=== PATIENT | female | born 1965 | race Caucasian/White ===

== ENCOUNTER 2024-12-29 16:08 | Inpatient (IN) | payer MEDICARE, OTHER ==
[~2024-12-29] VITALS: Ht 170.2 cm; Wt 59.0 kg
[2024-12-29 18:24] LABS: BASOPHILS % (AUTO) 0.4 % (0.0-2.0); EOSINOPHILS # (AUTO) 0.2 K/uL (0.0-0.7); EOSINOPHILS % (AUTO) 2.2 % (0.0-7.0); HEMATOCRIT 36.9 % (31.2-41.9); HEMOGLOBIN 12.3 g/dL (10.9-14.3); LYMPHOCYTES # (AUTO) 2.8 K/uL (0.8-4.8); LYMPHOCYTES % (AUTO) 32.7 % (20.5-51.5); MEAN CORPUSCULAR HEMOGLOBIN 28.7 uug (24.7-32.8); MEAN CORPUSCULAR HGB CONC 33 g/dL (32.3-35.6); MEAN CORPUSCULAR VOLUME 86.5 fL (75.5-95.3); MONOCYTES # (AUTO) 0.7 K/uL (0.1-1.30); MONOCYTES % (AUTO) 8.3 % (0.0-11.0); NEUTROPHILS # (AUTO) 4.9 K/uL (1.8-8.9); NEUTROPHILS % (AUTO) 56.4 % (38.5-71.5); PLATELET COUNT (AUTO) 202 K/uL (179-408); RED BLOOD CELL COUNT(AUTO) 4.27 MIL/uL (3.63-4.92); RED CELL DISTRIBUTION WIDTH 15.1 % (12.3-17.7); WHITE BLOOD COUNT (AUTO) 8.6 K/uL (3.8-11.8)
[2024-12-29 18:35] VITALS: BP 120/78; TEMP 98.2; O2SAT 98
[2024-12-29 18:54] LABS: ETHANOL < 3 MG/DL (0-10)
[2024-12-29 18:55] LABS: DIFFERENTIAL COMMENT 1
[2024-12-29 18:57] LABS: CALCIUM 8.9 mg/dL (8.5-10.1); CARBON DIOXIDE 29 mmol/L (21-32); CHLORIDE 102 mmol/L (98-107); CREATININE 0.4 mg/dL (0.6-1.3); GLUCOSE 90 mg/dL (74-106); POTASSIUM 3.9 mmol/L (3.5-5.1); SODIUM SERUM 139 mmol/L (136-145); UREA NITROGEN, BLOOD 11 mg/dL (7-18)
[2024-12-29 19:11] LABS: ALANINE AMINOTRANSFERASE 15 U/L (14-59); ALBUMIN 3.1 g/dL (3.4-5.0); ALKALINE PHOSPHATASE 68 U/L (50-136); ASPARTATE AMINOTRANSFERASE 10 U/L (15-37); BILIRUBIN,DIRECT 0.1 mg/dL (0.0-0.2); BILIRUBIN,TOTAL 0.3 mg/dL (0.2-1.0); NT-PRO BNP 52 pg/mL (0-125); TOTAL PROTEIN, SERUM 6.5 g/dL (6.4-8.2)
[2024-12-29] MEDS ORDERED: ONDANSETRON 4 MG/2 ML VIAL IV PRN (20:15)
[2024-12-29] MEDS ORDERED: REMEDY ESSENTIAL ZINC PASTE 113 GM TP PRN (20:15)
[2024-12-29] MEDS ORDERED: MAGNESIUM HYDROXIDE 30 ML LIQUID UDC PO PRN (20:15)
[2024-12-29 20:32] LABS: ACETAMINOPHEN < 2.0 ug/mL (10-30)
[2024-12-29] MEDS: IV 1/2NS 1000 ML 1,000 ML IV PRN (21:39)
[2024-12-29] MEDS ORDERED: PIPERACILLIN SODIUM/TAZO 3.375 GM VIAL ONE (21:51)
[2024-12-29] MEDS: PIPERACILLIN SODIUM/TAZOBACTAM 3.375 G in IV DEXTROSE 5% 50 ML IV SCH (22:22)
[2024-12-29] MEDS: ENOXAPARIN SODIUM 40 MG/0.4 ML DISP.SYRIN SQ SCH (22:23)
[2024-12-29] MEDS ORDERED: VANCOMYCIN IV 200 ML ONE (22:55)
[2024-12-29] MEDS: VANCOMYCIN IV 1,000 MG in IV NORMAL SALINE 250 ML IV ONE (23:05)
[2024-12-30] MEDS ORDERED: PIPERACILLIN SODIUM/TAZOBACTAM 3.375 G in IV DEXTROSE 5% 50 ML IV SCH (06:00)
[2024-12-30 06:55] LABS: BASOPHILS % (AUTO) 0.4 % (0.0-2.0); EOSINOPHILS # (AUTO) 0.1 K/uL (0.0-0.7); EOSINOPHILS % (AUTO) 1.5 % (0.0-7.0); HEMATOCRIT 37.6 % (31.2-41.9); HEMOGLOBIN 12.4 g/dL (10.9-14.3); LYMPHOCYTES # (AUTO) 1.2 K/uL (0.8-4.8); LYMPHOCYTES % (AUTO) 15.4 % (20.5-51.5); MEAN CORPUSCULAR HEMOGLOBIN 28.4 uug (24.7-32.8); MEAN CORPUSCULAR HGB CONC 33 g/dL (32.3-35.6); MEAN CORPUSCULAR VOLUME 85.8 fL (75.5-95.3); MONOCYTES # (AUTO) 0.6 K/uL (0.1-1.30); MONOCYTES % (AUTO) 8.3 % (0.0-11.0); NEUTROPHILS # (AUTO) 5.6 K/uL (1.8-8.9); NEUTROPHILS % (AUTO) 74.4 % (38.5-71.5); PLATELET COUNT (AUTO) 177 K/uL (179-408); RED BLOOD CELL COUNT(AUTO) 4.39 MIL/uL (3.63-4.92); WHITE BLOOD COUNT (AUTO) 7.5 K/uL (3.8-11.8)
[2024-12-30 07:27] LABS: CARBON DIOXIDE 29 mmol/L (21-32); CHLORIDE 104 mmol/L (98-107); CHOLESTEROL 146 mg/dL (<200); CREATININE 0.4 mg/dL (0.6-1.3); DIFFERENTIAL COMMENT 1; GLUCOSE 83 mg/dL (74-106); HDL CHOLESTEROL 59 mg/dL (40-60); MAGNESIUM 1.8 mg/dL (1.8-2.4); PHOSPHOROUS 4.1 mg/dL (2.5-4.9); POTASSIUM 4.1 mmol/L (3.5-5.1); SODIUM SERUM 141 mmol/L (136-145); TRIGLYCERIDES 43 MG/DL (30-150); UREA NITROGEN, BLOOD 8 mg/dL (7-18)
[2024-12-30 07:43] LABS: CALCIUM 8.7 mg/dL (8.5-10.1)
[2024-12-30] MEDS: PANTOPRAZOLE SODIUM 40 MG VIAL IV SCH (08:32)
[2024-12-30 09:06] VITALS: BP 101/63; TEMP 98.3; O2SAT 95
[2024-12-30] MEDS ORDERED: BUSP5TAB3 PO (09:35)
[2024-12-30] MEDS ORDERED: RISP3TAB61 PO (09:35)
[2024-12-30] MEDS ORDERED: MULT-1045 PO (09:35)
[2024-12-30] MEDS ORDERED: LEVO330T6 PO (09:35)
[2024-12-30] MEDS ORDERED: ATOR10TA PO (09:35)
[2024-12-30] MEDS ORDERED: ASCO500C18 PO (09:35)
[2024-12-30] MEDS ORDERED: LACT10SO68 PO (09:35)
[2024-12-30] MEDS ORDERED: PROT30LI PO (09:35)
[2024-12-30] MEDS ORDERED: OXCA300T15 PO (09:35)
[2024-12-30] MEDS ORDERED: LORA-259 PO (09:35)
[2024-12-30] MEDS: DIVALPROEX SPRINKLE 125 MG CAP.SPRINK PO SCH (09:57)
[2024-12-30] MEDS: LORAZEPAM 1 MG TABLET PO PRN ×2 (09:57→21:03)
[2024-12-30] MEDS: OLANZAPINE ZYDIS 5 MG TAB.RAPDIS PO SCH (09:58)
[2024-12-30 10:49] LABS: THYROID STIMULATING HORMONE 0.891 mIU/mL (0.358-3.740)
[2024-12-30] MEDS: MEROPENEM 0.5 G in IV NORMAL SALINE 50 ML IV SCH (11:34)
[2024-12-30] MEDS: MEDIHONEY= THERAHONEY 1.5 OZ TUBE TOP SCH (12:08)
[2024-12-30] MEDS ORDERED: LACTULOSE 20 G/30 ML LIQUID UDC PO PRN (15:15)
[2024-12-30] MEDS: VANCOMYCIN IV 1,000 MG in IV DEXTROSE 5% 250 ML IV SCH (15:48)
[2024-12-30 16:15] VITALS: BP 100/61; TEMP 98.9; O2SAT 97
[2024-12-30] MEDS: OXCARBAZEPINE 300 MG TABLET PO SCH (16:21)
[2024-12-30] MEDS: risperiDONE 2 MG TABLET PO SCH (16:22)
[2024-12-30] MEDS: PROTEIN SUPPLEMENT (PROSTAT) 30 ML LIQUID PO SCH (16:24)
[2024-12-30] MEDS: ARGININE/GLUTAMINE/CALCIUM BMB 1 EACH POWD.PACK PO SCH (16:24)
[2024-12-30] MEDS: busPIRone 5 MG TABLET PO SCH (16:24)
[2024-12-30 18:00] VITALS: BP 82/51; TEMP 99.5; O2SAT 95
[2024-12-30 18:30] VITALS: BP 82/57; TEMP 99.5; O2SAT 95
[2024-12-30] MEDS: ATORVASTATIN 10 MG TABLET PO SCH (21:03)
[2024-12-31] MEDS: TEMAZEPAM 7.5 MG CAPSULE PO PRN (01:38)
[2024-12-31] MEDS: OLANZAPINE 10 MG VIAL IM ONE (02:02)
[2024-12-31 04:20] VITALS: BP 114/69; TEMP 98.3; O2SAT 95
[2024-12-31] MEDS: ACETAMINOPHEN 325 MG TABLET PO PRN (05:19)
[2024-12-31] MEDS: MULTIVIT, IRON, MIN NO. 8, FA TABLET PO SCH (08:12)
[2024-12-31] MEDS: ASCORBIC ACID 500 MG TABLET PO SCH (08:12)
[2024-12-31 09:41] LABS: CALCIUM 8.5 mg/dL (8.5-10.1); CREATININE 0.5 mg/dL (0.6-1.3); POTASSIUM 3.6 mmol/L (3.5-5.1)
[2024-12-31] MEDS: HYDROCODONE/APAP 5-325MG TABLET PO PRN (10:48)
[2024-12-31 11:26] VITALS: BP 117/74; TEMP 97.6; O2SAT 97
[2024-12-31 15:48] VITALS: BP 108/74; TEMP 97.6; O2SAT 97
[2024-12-31 18:15] VITALS: BP 150/73; TEMP 97.9; O2SAT 96
[2025-01-01 06:11] VITALS: BP 138/81; TEMP 98.5; O2SAT 100
[2025-01-01] MEDS: VANCOMYCIN IV 1,000 MG in IV DEXTROSE 5% 250 ML IV SCH (10:25)
[2025-01-01 11:07] VITALS: BP 123/98; TEMP 98.2; O2SAT 94
[2025-01-01 15:30] VITALS: BP 154/95; TEMP 97.6; O2SAT 96
[2025-01-01 19:48] VITALS: BP 131/75; TEMP 98.1; O2SAT 97
[2025-01-01 22:45] VITALS: BP 131/75; TEMP 98.1; O2SAT 97
[2025-01-02 05:26] VITALS: BP 135/71; TEMP 98; O2SAT 98
[2025-01-02] MEDS: PANTOPRAZOLE SODIUM 40 MG TABLET.DR PO SCH (06:32)
[2025-01-02] MEDS: OLANZAPINE ZYDIS 5 MG TAB.RAPDIS PO SCH (09:39)
[2025-01-02] MEDS: VANCOMYCIN IV 1,000 MG in IV DEXTROSE 5% 250 ML IV SCH (11:30)
[2025-01-02 11:40] VITALS: BP 141/84; TEMP 97.7; O2SAT 100
[2025-01-02 15:42] VITALS: BP 149/95; TEMP 97.7; O2SAT 100
[2025-01-02] MEDS: OLANZAPINE 10 MG VIAL IM ONE (18:23)
[2025-01-02 20:00] VITALS: TEMP 96.8
[2025-01-03 04:00] VITALS: BP 149/74; TEMP 98.3; O2SAT 95
[2025-01-03] MEDS: DIVALPROEX SPRINKLE 125 MG CAP.SPRINK PO SCH (08:36)
[2025-01-03 11:44] VITALS: BP 108/68; TEMP 98.3; O2SAT 99
[2025-01-03 15:48] VITALS: BP 118/74; TEMP 98.3; O2SAT 98
[2025-01-03] MEDS: VANCOMYCIN IV 1,000 MG in IV DEXTROSE 5% 250 ML IV SCH (18:11)
[2025-01-03 19:45] VITALS: BP 110/54; TEMP 97.8; O2SAT 95
[2025-01-04 04:41] VITALS: BP 143/72; TEMP 97.8; O2SAT 100
[2025-01-04 15:05] VITALS: BP 155/71; TEMP 98.2; O2SAT 95
[2025-01-04 15:47] LABS: CALCIUM 8.2 mg/dL (8.5-10.1); CARBON DIOXIDE 27 mmol/L (21-32); CHLORIDE 96 mmol/L (98-107); CREATININE 0.3 mg/dL (0.6-1.3); GLUCOSE 106 mg/dL (74-106); POTASSIUM 4.1 mmol/L (3.5-5.1); SODIUM SERUM 130 mmol/L (136-145); UREA NITROGEN, BLOOD 12 mg/dL (7-18)
[2025-01-04 17:44] LABS: CALCIUM 8.4 mg/dL (8.5-10.1); CARBON DIOXIDE 28 mmol/L (21-32); CHLORIDE 97 mmol/L (98-107); CREATININE 0.3 mg/dL (0.6-1.3); GLUCOSE 117 mg/dL (74-106); SODIUM SERUM 129 mmol/L (136-145); UREA NITROGEN, BLOOD 12 mg/dL (7-18); VANCOMYCIN,TROUGH 16.3 ug/mL (10.0-20.0)
[2025-01-04 19:25] VITALS: BP 103/64; TEMP 97; O2SAT 95
[2025-01-04] MEDS: ACIDOPHILUS/BULGARICUS CHEW TAB PO SCH (22:01)
[2025-01-05 05:37] VITALS: BP 138/79; TEMP 98; O2SAT 100
[2025-01-05 06:40] LABS: BASOPHILS % (AUTO) 0.7 % (0.0-2.0); EOSINOPHILS # (AUTO) 0.2 K/uL (0.0-0.7); EOSINOPHILS % (AUTO) 4.1 % (0.0-7.0); HEMATOCRIT 37.7 % (31.2-41.9); HEMOGLOBIN 12.7 g/dL (10.9-14.3); LYMPHOCYTES # (AUTO) 2.3 K/uL (0.8-4.8); LYMPHOCYTES % (AUTO) 39.4 % (20.5-51.5); MEAN CORPUSCULAR HEMOGLOBIN 28.2 uug (24.7-32.8); MEAN CORPUSCULAR HGB CONC 34 g/dL (32.3-35.6); MEAN CORPUSCULAR VOLUME 83.7 fL (75.5-95.3); MONOCYTES # (AUTO) 0.5 K/uL (0.1-1.30); MONOCYTES % (AUTO) 8.5 % (0.0-11.0); NEUTROPHILS # (AUTO) 2.7 K/uL (1.8-8.9); NEUTROPHILS % (AUTO) 47.3 % (38.5-71.5); PLATELET COUNT (AUTO) 165 K/uL (179-408); RED CELL DISTRIBUTION WIDTH 14.7 % (12.3-17.7); WHITE BLOOD COUNT (AUTO) 5.8 K/uL (3.8-11.8)
[2025-01-05 06:49] LABS: DIFFERENTIAL COMMENT 1
[2025-01-05 07:00] LABS: IRON, SERUM 48 ug/dL (50-175)
[2025-01-05 07:20] LABS: ALANINE AMINOTRANSFERASE 32 U/L (14-59); ALKALINE PHOSPHATASE 61 U/L (50-136); ASPARTATE AMINOTRANSFERASE 20 U/L (15-37); BILIRUBIN,TOTAL 0.2 mg/dL (0.2-1.0); CALCIUM 8.4 mg/dL (8.5-10.1); CARBON DIOXIDE 27 mmol/L (21-32); CHLORIDE 95 mmol/L (98-107); CREATININE 0.4 mg/dL (0.6-1.3); GLUCOSE 89 mg/dL (74-106); MAGNESIUM 1.6 mg/dL (1.8-2.4); PHOSPHOROUS 3.8 mg/dL (2.5-4.9); POTASSIUM 4.3 mmol/L (3.5-5.1); SODIUM SERUM 131 mmol/L (136-145); TOTAL PROTEIN, SERUM 6.6 g/dL (6.4-8.2); UREA NITROGEN, BLOOD 11 mg/dL (7-18)
[2025-01-05 07:53] LABS: THYROID STIMULATING HORMONE 3.619 mIU/mL (0.358-3.740)
[2025-01-05 10:41] VITALS: BP 127/64; TEMP 97.8; O2SAT 97
[2025-01-05] MEDS ORDERED: DIVA125C2 PO (11:59)
[2025-01-05] MEDS ORDERED: NUTR1PAC14 PO (11:59)
[2025-01-05] MEDS ORDERED: OLAN5TAB6 PO (11:59)
[2025-01-05] MEDS ORDERED: VANC1PLA9 IV (12:04)
[2025-01-05] MEDS: MAGNESIUM OXIDE 400 MG TABLET PO ONE (12:15)
[2025-01-05] MEDS: OLANZAPINE ZYDIS 5 MG TAB.RAPDIS PO SCH (13:12)
[2025-01-05 15:18] VITALS: BP 120/68; TEMP 97.8; O2SAT 98
[2025-01-05 16:54] LABS: *BILIRUBIN,URIN NEGATIVE (NEGATIVE); *BLOOD, URINE NEGATIVE (NEGATIVE); *CLARITY,URINE CLEAR (CLEAR); *COLOR,URINE YELLOW (YELLOW); *KETONES,URINE NEGATIVE (NEGATIVE); *PROTEIN,URINE NEGATIVE (NEGATIVE); *UROBILINOGEN,URINE 0.2 E.U./dl (NORMAL); LEUKOCYTE ESTERASE ,URINE NEGATIVE (NEGATIVE); NITRITE, URINE NEGATIVE (NEGATIVE); UGLUCOSE NEGATIVE (NEGATIVE)
[2025-01-05 16:56] LABS: *SODIUM RNDM,URINE 70 mmol/L (40-220)
[2025-01-05 19:20] VITALS: BP 97/60; TEMP 97.7; O2SAT 97
[2025-01-06 06:39] VITALS: BP 110/78; TEMP 97.6; O2SAT 96
[2025-01-06 07:04] LABS: CALCIUM 8.3 mg/dL (8.5-10.1); CARBON DIOXIDE 29 mmol/L (21-32); CHLORIDE 93 mmol/L (98-107); CREATININE 0.3 mg/dL (0.6-1.3); GLUCOSE 82 mg/dL (74-106); MAGNESIUM 1.6 mg/dL (1.8-2.4); PHOSPHOROUS 3.6 mg/dL (2.5-4.9); POTASSIUM 4.3 mmol/L (3.5-5.1); SODIUM SERUM 128 mmol/L (136-145); UREA NITROGEN, BLOOD 9 mg/dL (7-18); URIC ACID 2.3 mg/dL (2.6-6.0)
[2025-01-06 08:32] LABS: THYROID STIMULATING HORMONE 4.688 mIU/mL (0.358-3.740)
[2025-01-06] MEDS ORDERED: MAGNESIUM OXIDE 400 MG TABLET PO ONE (10:00)
== END 2025-01-06 10:08 | DRG 579 ==
LOC: ER 16:08 → MEDSURG3 19:34
PROC: 05HC33Z Insertion of Infusion Device into Left Basilic Vein, Percutaneous Approach (ICD-10-PCS; principal; 2025-01-01)
PROC: 0KDN0ZZ Extraction of Right Hip Muscle, Open Approach (ICD-10-PCS; 2025-01-03)
PROC: 0KDP0ZZ Extraction of Left Hip Muscle, Open Approach (ICD-10-PCS; 2025-01-03)
DX: L89.154 Pressure ulcer of sacral region, stage 4 (principal); G92.8 Other toxic encephalopathy; F20.0 Paranoid schizophrenia; E44.0 Moderate protein-calorie malnutrition; D68.59 Other primary thrombophilia; I96 Gangrene, not elsewhere classified; R41.82 Altered mental status, unspecified; L89.322 Pressure ulcer of left buttock, stage 2; G40.909 Epilepsy, unspecified, not intractable, without status epilepticus; M24.562 Contracture, left knee; M24.561 Contracture, right knee; M24.572 Contracture, left ankle; M24.571 Contracture, right ankle; Z74.09 Other reduced mobility; E78.5 Hyperlipidemia, unspecified; E03.9 Hypothyroidism, unspecified; F25.0 Schizoaffective disorder, bipolar type; R62.7 Adult failure to thrive; Z68.20 Body mass index [BMI] 20.0-20.9, adult; F79 Unspecified intellectual disabilities; Z88.2 Allergy status to sulfonamides; Z88.0 Allergy status to penicillin; L22 Diaper dermatitis; J44.9 Chronic obstructive pulmonary disease, unspecified; R32 Unspecified urinary incontinence; I10 Essential (primary) hypertension
CPT/HCPCS: 36415; 70450; 71045; 80164; 83550; 83735; 84100; 84300; 84443; 84484; 84550; 85025; 85730; 87086; A4606; A4663; A6209; A6213; G0378; G0480; J1650; J2185; J2358; J2470; J2543; J3370; J7050